=== PATIENT | male | born 1955 | race African-American/Black ===

== ENCOUNTER 2023-06-09 04:25 | Inpatient (IN) | payer MEDICARE ==
[2023-06-09 05:36] LABS: Hematocrit 34.9 % (42.0-52.0); Hemoglobin 10.6 g/dL (14.0-18.0); Mean Corpuscular HGB CONC 30.4 g/dL (32.0-36.0); Mean Corpuscular Hemoglobin 23.4 pg (27.0-31.0); Platelet Count 228 10x3/uL (130-400); RBC Distribution Width 16.8 % (11.5-14.5); Red Blood Cell (RBC) Count 4.53 mill/uL (4.70-6.10); White Blood Cell (WBC) Count 12.4 10x3/uL (4.8-10.8)
[2023-06-09] MEDS ORDERED: Ibuprofen 200 MG TAB ONE (05:46)
[2023-06-09 05:59] LABS: Delete Auto Diff?? YES; Manual Diff?? YES
[2023-06-09 06:02] LABS: SARS-CoV-2 NAA Rapid Test Not Detected (NotDetected)
[2023-06-09 06:02] LABS: ALT (SGPT) 16 U/L (8-55); AST (SGOT) 20 U/L (5-34); Albumin 3.7 g/dL (3.4-4.8); Alkaline Phosphatase 84 U/L (40-110); Anion Gap 11 mmol/L (10-20); BUN (Urea Nitrogen) 15 mg/dL (8.4-25.7); Bilirubin, Total 1.2 mg/dL (0.2-1.2); Calc. Creatinine Clearance 0 mL/min (70-130); Calcium 8.6 mg/dL (7.8-10.44); Carbon Dioxide 23 mmol/L (23-31); Chloride 108 mmol/L (98-107); Estimated GFR 60; Globulin 2.9 g/dL (2.4-3.5); Glucose 131 mg/dL (80-115); Lipase 14 U/L (8-78); Potassium 3.9 mmol/L (3.5-5.1); Protein, Total 6.6 g/dL (5.8-8.1); Sodium 138 mmol/L (136-145)
[2023-06-09 06:48] LABS: Anisocytosis SLIGHT = 6-15 cells HPF (0-5); Band 19 % (5-11); CellaVision Operator ID LAB.JMM; Large Platelets 2.9 % (0-5); Lymphocytes 12 % (21-51); Macrocytosis SLIGHT = 6-15 cells HPF (0-5); Monocytes 2 % (0-10); Neutrophil 67 % (42-75); Platelet Adequacy Comment Platelets Normal; Smudge Cells 1.9 %; Total Cell Count 103
[2023-06-09 07:23] LABS: Bacteria/HPF 3+ HPF (None Seen); Bilirubin Negative (Negative); Blood, Urine Trace (Negative); CAUTI Indications for Culture Fever or rigors; Clarity Turbid (Clear); Glucose, Urine (Dipstick) Normal (Negative); Ketone, Urine Negative (Negative); Leukocyte 500 Leu/uL (Negative); Nitrite 2+ (Negative); Protein, Urine (Dipstick) 30 mg/dL (Neg-Trace); RBC/HPF 0-3 HPF (0-3); Specific Gravity, Urine 1.015 (1.002-1.036); Squamous Epithelial 0-3 HPF (0-3); Urobilinogen Normal mg/dL (Less than 2); WBC/HPF Greater than 50 HPF (0-3); pH, Urine 5.5 (5.0-9.0)
[2023-06-09 07:25] LABS: Urine Culture Reflex Yes Yes
[2023-06-09] MEDS ORDERED: cefTRIAXone (ROCEPHIN) 2 GM VIAL ONE (07:29)
[2023-06-09 08:46] LABS: Lactic Acid 1.4 mmol/L (0.5-2.2)
[2023-06-09] MEDS ORDERED: Ondansetron PF 4 MG/2 ML Vial IVP PRN (10:31)
[2023-06-09] MEDS: Sodium Chloride 0.9% 1,000 ML IV SCH ×2 (11:13→20:36)
[2023-06-09] MEDS: HYDROcodone/Acetaminophen 5/325 mg Tablet PO PRN ×2 (11:13→20:34)
[2023-06-09 11:44] VITALS: BMI 32.3
[2023-06-10] MEDS: HYDROcodone/Acetaminophen 5/325 mg Tablet PO PRN ×2 (05:21→20:30)
[2023-06-10 06:24] LABS: #Eosinphils 0.1 thou/uL (0.0-0.7); #Monocytes 1.6 thou/uL (0.11-0.59); #Neutrophils 11.9 thou/uL (1.40-6.50); %Basophils 0.3 % (0.0-1.0); %Eosinophils 0.5 % (0.0-10.0); %Lymphocytes 11.2 % (21.0-51.0); %Monocytes 10.1 % (0.0-10.0); %Neutrophils 77.4 % (42.0-75.0); Hemoglobin 10.3 g/dL (14.0-18.0); Mean Corpuscular HGB CONC 30.3 g/dL (32.0-36.0); Mean Corpuscular Hemoglobin 23.3 pg (27.0-31.0); Mean Corpuscular Volume 76.7 fl (78.0-98.0); Mean Platelet Volume 11.2 fL (7.4-10.4); Platelet Count 227 10x3/uL (130-400); Red Blood Cell (RBC) Count 4.43 mill/uL (4.70-6.10); White Blood Cell (WBC) Count 15.4 10x3/uL (4.8-10.8)
[2023-06-10 06:44] LABS: Anion Gap 11 mmol/L (10-20); BUN (Urea Nitrogen) 13 mg/dL (8.4-25.7); Calc. Creatinine Clearance 88 mL/min (70-130); Calcium 8.9 mg/dL (7.8-10.44); Carbon Dioxide 26 mmol/L (23-31); Chloride 108 mmol/L (98-107); Estimated GFR 64; Glucose 111 mg/dL (80-115); Sodium 141 mmol/L (136-145)
[2023-06-10] MEDS ORDERED: FERROUS SULFATE 325 MG PO SCH (08:15)
[2023-06-10] MEDS: Ferrous Sulfate 325 MG TAB PO SCH (08:33)
[2023-06-10] MEDS: cefTRIAXone\\ROCEPHIN 1 GM in Sodium Chloride 0.9% 100 ML IVPB SCH (08:33)
[2023-06-10] MEDS: Aspirin Chewable 81 MG TAB PO SCH (08:33)
[2023-06-10] MEDS ORDERED: Lisinopril 10 MG TAB PO SCH (12:30)
[2023-06-10] MEDS: Acetaminophen 325 MG TAB PO PRN (13:05)
[2023-06-10] MEDS: Amlodipine 10 MG TAB PO SCH (20:27)
[2023-06-11] MEDS: HYDROcodone/Acetaminophen 5/325 mg Tablet PO PRN ×3 (05:20→21:58)
[2023-06-11] MEDS: Bisacodyl 5 MG TAB PO PRN (05:24)
[2023-06-11 06:55] LABS: Hematocrit 36.8 % (42.0-52.0); Mean Corpuscular HGB CONC 29.9 g/dL (32.0-36.0); Mean Corpuscular Hemoglobin 23.1 pg (27.0-31.0); Mean Corpuscular Volume 77.3 fl (78.0-98.0); Mean Platelet Volume 11.1 fL (7.4-10.4); Platelet Count 238 10x3/uL (130-400); Red Blood Cell (RBC) Count 4.76 mill/uL (4.70-6.10)
[2023-06-11] MEDS: cefTRIAXone\\ROCEPHIN 1 GM in Sodium Chloride 0.9% 100 ML IVPB SCH (08:39)
[2023-06-11] MEDS: Aspirin Chewable 81 MG TAB PO SCH (08:40)
[2023-06-11] MEDS: Lisinopril 10 MG TAB PO SCH (08:40)
[2023-06-11] MEDS: Cefepime 2 GM in Sodium Chloride 0.9% 100 ML IVPB SCH ×2 (15:27→21:59)
[2023-06-11] MEDS ORDERED: Polyethylene Glycol 3350 17 GM Packet PO PRN (15:32)
[2023-06-11] MEDS ORDERED: Docusate 100 MG CAP PO PRN (15:32)
[2023-06-11] MEDS ORDERED: Docusate 100 MG CAP PO SCH (15:45)
[2023-06-11] MEDS ORDERED: Polyethylene Glycol 3350 17 GM Packet PO SCH (15:45)
[2023-06-11] MEDS: Amlodipine 10 MG TAB PO SCH (20:20)
[2023-06-12] MEDS: Cefepime 2 GM in Sodium Chloride 0.9% 100 ML IVPB SCH ×3 (05:18→21:31)
[2023-06-12] MEDS: HYDROcodone/Acetaminophen 5/325 mg Tablet PO PRN ×2 (05:19→20:34)
[2023-06-12] MEDS: Ferrous Sulfate 325 MG TAB PO SCH (09:07)
[2023-06-12] MEDS: Aspirin Chewable 81 MG TAB PO SCH (09:07)
[2023-06-12] MEDS: Lisinopril 10 MG TAB PO SCH (09:08)
[2023-06-12] MEDS ORDERED: Bisacodyl 10 MG SUPP PR PRN (12:33)
[2023-06-12] MEDS: Docusate 100 MG CAP PO SCH (20:33)
[2023-06-12] MEDS: Amlodipine 10 MG TAB PO SCH (20:33)
[2023-06-12] MEDS: Polyethylene Glycol 3350 17 GM Packet PO SCH (20:34)
[2023-06-13] MEDS: Cefepime 2 GM in Sodium Chloride 0.9% 100 ML IVPB SCH ×3 (05:49→22:23)
[2023-06-13] MEDS: HYDROcodone/Acetaminophen 5/325 mg Tablet PO PRN ×2 (05:51→22:23)
[2023-06-13] MEDS: Polyethylene Glycol 3350 17 GM Packet PO SCH ×2 (08:14→22:23)
[2023-06-13] MEDS: Docusate 100 MG CAP PO SCH ×2 (08:16→22:22)
[2023-06-13] MEDS: Lisinopril 10 MG TAB PO SCH (08:16)
[2023-06-13] MEDS: Aspirin Chewable 81 MG TAB PO SCH (08:16)
[2023-06-13] MEDS: Amlodipine 10 MG TAB PO SCH (22:22)
[2023-06-14] MEDS: Cefepime 2 GM in Sodium Chloride 0.9% 100 ML IVPB SCH ×3 (06:18→21:00)
[2023-06-14] MEDS: Polyethylene Glycol 3350 17 GM Packet PO SCH ×2 (08:10→21:02)
[2023-06-14] MEDS: Docusate 100 MG CAP PO SCH ×2 (08:11→21:02)
[2023-06-14] MEDS: Lisinopril 10 MG TAB PO SCH (08:11)
[2023-06-14] MEDS: Aspirin Chewable 81 MG TAB PO SCH (08:11)
[2023-06-14] MEDS: HYDROcodone/Acetaminophen 5/325 mg Tablet PO PRN (20:59)
[2023-06-14] MEDS ORDERED: Sulfameth/Trimethoprim DS 800-160mg TAB PO SCH (21:00)
[2023-06-14] MEDS: Amlodipine 10 MG TAB PO SCH (21:02)
[2023-06-15] MEDS: Cefepime 2 GM in Sodium Chloride 0.9% 100 ML IVPB SCH (06:02)
[2023-06-15] MEDS: Acetaminophen 325 MG TAB PO PRN (06:06)
[2023-06-15 07:26] VITALS: TEMP 98.4
[2023-06-15] MEDS: Aspirin Chewable 81 MG TAB PO SCH (08:14)
[2023-06-15] MEDS: Bisacodyl 5 MG TAB PO PRN (08:15)
[2023-06-15] MEDS: Docusate 100 MG CAP PO SCH (08:15)
[2023-06-15] MEDS: Lisinopril 10 MG TAB PO SCH (08:15)
[2023-06-15] MEDS: Polyethylene Glycol 3350 17 GM Packet PO SCH (08:15)
[2023-06-15 08:16] VITALS: BP 148/89
[2023-06-15] MEDS: HYDROcodone/Acetaminophen 5/325 mg Tablet PO PRN (08:16)
[2023-06-15] MEDS ORDERED: Sulfameth/Trimethoprim DS 800-160mg TAB PO SCH (09:00)
== END 2023-06-15 11:10 | disposition home or self-care (01) | DRG 872 ==
LOC: ERS 04:25 → T4-A 07:49
PROVIDERS: ADMIT Internal Medicine; ATTEND Family Medicine
DX: A41.89 Other specified sepsis (principal); N39.0 Urinary tract infection, site not specified; N17.9 Acute kidney failure, unspecified; G89.29 Other chronic pain; M54.9 Dorsalgia, unspecified; N18.2 Chronic kidney disease, stage 2 (mild); I12.9 Hypertensive chronic kidney disease with stage 1 through stage 4 chronic kidney disease, or unspecified chronic kidney disease; D63.1 Anemia in chronic kidney disease; K59.00 Constipation, unspecified; Z20.822 Contact with and (suspected) exposure to COVID-19; Z90.49 Acquired absence of other specified parts of digestive tract; Z98.890 Other specified postprocedural states
CPT/HCPCS: 36415; 71045; 74018; 74176; 80048; 80053; 81001; 83605; 83690; 85025; 85027; 87040; 87077; 87086; 87149; 87186; 93005; 96361; 96365; J0692; J0696; J1650; J2405; J3490; J7050